=== PATIENT | male | born 1975 | race Caucasian/White ===

== ENCOUNTER 2017-03-18 13:05 | Emergency (ER) | payer OTHER ==
[2017-03-18 13:10] VITALS: BMI 32.6
[2017-03-18 13:11] VITALS: BP 147/105; PULSE 89; RESP 17; TEMP 98.4; O2SAT 98
[2017-03-18] MEDS ORDERED: Naproxen 550 mg Tab PO STA (13:26)
[2017-03-18] MEDS ORDERED: Naproxen 550 mg Tab PO ONE (13:35)
--- NOTE | 2017-03-18 14:25 | C.PDOC ---
History Of Present Illness 41 yr old male presents to the ER stating 3 days ago he was playing softball when he fell and landed on his right side. Patient states the pain has continued in the right ribs. Patient denies chest pain, SOB, cough, nausea, vomiting, back pain, weakness or numbness. Time Seen by Provider: 03/18/17 13:23 Chief Complaint (Nursing): Rib Injury History Per: Patient History/Exam Limitations: no limitations Onset/Duration Of Symptoms: Days (3) Current Symptoms Are (Timing): Still Present Past Medical History Reviewed: Historical Data, Nursing Documentation, Vital Signs Vital Signs: Last Vital Signs Temp 98.4 F 03/18/17 13:10 Pulse 89 03/18/17 13:10 Resp 17 03/18/17 13:10 BP 147/105 H 03/18/17 13:10 Pulse Ox 98 03/18/17 16:32 - Medical History PMH: Kidney Stones Family History: States: No Known Family Hx - Social History Hx Tobacco Use: No Hx Alcohol Use: Yes Hx Substance Use: No Review Of Systems Except As Marked, All Systems Reviewed And Found Negative. Cardiovascular: Negative for: Chest Pain Respiratory: Negative for: Cough, Shortness of Breath Gastrointestinal: Negative for: Nausea, Vomiting Musculoskeletal: Positive for: Other ((+) Right sided rib pain ). Negative for : Back Pain Neurological: Negative for: Weakness, Numbness Physical Exam - Physical Exam Appears: Well, Non-toxic, No Acute Distress Skin: Warm, Dry, No Rash Head: Atraumatic, Normacephalic Neck: Normal ROM, No Midline Cervical Tenderness, No Paracervical Tenderness Chest: Symmetrical, Tenderness (Localized tenderness to the 8th anterior axillary line. ) Cardiovascular: Rhythm Regular, No Murmur Respiratory: Normal Breath Sounds, No Rales, No Rhonchi, No Wheezing Extremity: Normal ROM, No Swelling Neurological/Psych: Oriented x3, Normal Speech, Normal Cognition, Normal Motor ED Course And Treatment O2 Sat by Pulse Oximetry: 98 - Other Rad X-Ray - Ribs & Chest X-Ray: Viewed By Me, Read By Radiologist Interpretation: PROCEDURE: Radiographs of the Chest and Right Ribs. HISTORY: fall. COMPARISON: None available. TECHNIQUE: Frontal radiograph of the chest and multiple oblique radiographs of the right ribs were obtained. FINDINGS: RIGHT RIBS: No fracture or focal lesion visualized. LUNGS: Clear. PLEURA: No pneumothorax or pleural fluid. CARDIOVASCULAR: Normal sized heart. No pulmonary vascular congestion. OTHER FINDINGS: None. IMPRESSION: Unremarkable radiographs of the chest and right ribs. No right rib fracture. Medical Decision Making Medical Decision Making: PLAN: * X-Ray - Ribs & Chest * Naproxen PO * Results discussed * home with pain meds Disposition Counseled Patient/Family Regarding: Diagnosis, Need For Followup - Disposition Disposition: HOME/ ROUTINE Disposition Time: 14:23 Condition: GOOD Prescriptions: Naproxen [Naprosyn] 1 tab PO BID PRN #25 tab PRN Reason: Pain Instructions: Rib Contusion (ED) - Clinical Impression Clinical Impression: Contusion of rib - Scribe Statement The provider has reviewed the documentation as recorded by the Suresh Horowitz Provider Attestation: All medical record entries made by the Suresh were at my direction and personally dictated by me. I have reviewed the chart and agree that the record accurately reflects my personal performance of the history, physical exam, medical decision making, and the department course for this patient. I have also personally directed, reviewed, and agree with the discharge instructions and disposition.
== END 2017-03-18 14:38 | disposition home or self-care (01) ==
LOC: C.ER 13:05
DX: S20.211A Contusion of right front wall of thorax, initial encounter (principal); W18.39XA Other fall on same level, initial encounter; Y93.64 Activity, baseball; Y92.89 Other specified places as the place of occurrence of the external cause

== ENCOUNTER 2017-10-05 04:12 | Emergency (ER) | payer OTHER ==
[2017-10-05 05:34] LABS: BASO % 0.7 % (0.0-2.0); EOS # 0.2 K/uL (0.0-0.7); EOS % 3.9 % (0.0-4.0); HEMATOCRIT 44.4 % (35.0-51.0); LYMPH # 1.5 K/uL (1.0-4.3); LYMPH % 23.5 % (20.0-40.0); MEAN CELL VOLUME 84.2 fL (80.0-94.0); MEAN CORPUSCULAR HEMOGLOBIN 28.4 pg (27.0-31.0); MEAN CORPUSCULAR HGB CONC 33.7 g/dL (33.0-37.0); MEAN PLATELET VOLUME 9.7 fL (7.2-11.7); MONO # 0.6 K/uL (0.0-0.8); MONO % 8.9 % (0.0-10.0); NRBC % 0.1 % (0.0-2.0); RED CELL DISTRIBUTION WIDTH 13.3 % (11.5-14.5); WHITE BLOOD COUNT 6.3 K/uL (4.8-10.8)
[2017-10-05 05:54] LABS: ALB/GLOB RATIO 1.1 (1.0-2.1); ALKALINE PHOSPHATASE 59 U/L (38-126); ALT/SGPT 101 U/L (21-72); AST/SGOT 54 U/L (17-59); BLOOD UREA NITROGEN 16 mg/dL (9-20); CALCIUM 8.3 mg/dl (8.6-10.4); CARBON DIOXIDE 24 mmol/L (22-30); CHLORIDE 104 mmol/L (98-107); GFR AFRICAN-AMERICAN > 60; GLUCOSE,RANDOM 105 mg/dL (75-110); POTASSIUM 3.6 mmol/L (3.6-5.2); SODIUM 139 mmol/L (132-148); TOTAL PROTEIN 8.5 g/dL (6.3-8.3)
[2017-10-05 06:14] VITALS: BP 137/80; PULSE 67; RESP 12; TEMP 98.1; O2SAT 97
--- NOTE | 2017-10-05 07:32 | RAD ---
HISTORY: CHEST PAIN COMPARISON: Right rib series with chest 03/18/2017. FINDINGS: LUNGS: No active pulmonary disease. PLEURA: No significant pleural effusion identified, no pneumothorax apparent. CARDIOVASCULAR: Normal. OSSEOUS STRUCTURES: No significant abnormalities. VISUALIZED UPPER ABDOMEN: Normal. OTHER FINDINGS: None. IMPRESSION: No interval acute cardiopulmonary disease appreciated.
--- NOTE | 2017-10-08 08:30 | CARD ---
APPROVED REPORT EKG Measurement Heart [id number] <Conclusion> Normal sinus rhythm Normal ECG
== END 2017-10-05 06:26 | disposition home or self-care (01) ==
LOC: C.ER 04:12
DX: F41.9 Anxiety disorder, unspecified (principal)